=== PATIENT | male | born 1960 | race Caucasian/White ===

== ENCOUNTER 2019-10-14 07:32 | Outpatient (CLI) | payer OTHER ==
[~2019-10-14 07:32] MED LIST: APIX5TAB PO; ASPI325T92 PO; ATEN25TA PO; FLEC150T PO
== END 2019-10-14 23:59 | disposition home or self-care (01) ==
LOC: CFH 07:32
PROVIDERS: ATTEND Nurse Practitioner Family
DX: I48.91 Unspecified atrial fibrillation (principal)
CPT/HCPCS: 93306

== ENCOUNTER → 2020-11-16 | Outpatient (CLI) | payer OTHER | END | disposition home or self-care (01) | LOC: CLISVCS 11:20 | PROVIDERS: ATTEND Anesthesiology | DX: Z20.828 Contact with and (suspected) exposure to other viral communicable diseases (principal) | CPT/HCPCS: 87635 ==

== ENCOUNTER 2020-11-20 05:52 | Observation (INO) | payer OTHER ==
[~2020-11-20] VITALS: Ht 175.3 cm; Wt 84.1 kg
[2020-11-20 06:21] VITALS: BP 128/76
[2020-11-20] MEDS ORDERED: SODIUM CHLORIDE 0.9% 1,000 ML IV SCH ×2 (06:30)
[2020-11-20] MEDS ORDERED: VITA100C10 PO (06:35)
[2020-11-20] MEDS ORDERED: CHOL10003 PO (06:35)
[2020-11-20] MEDS ORDERED: FLEC150T PO (06:35)
[2020-11-20] MEDS ORDERED: IBUP200C8 PO (06:48)
[2020-11-20] MEDS ORDERED: Flovent INH (06:49)
[2020-11-20] MEDS ORDERED: FEXO180T15 PO (06:49)
[2020-11-20 07:09] LABS: ANION GAP 4 mmol/L (5-15); CALCIUM 9.1 mg/dL (8.5-10.1); CHLORIDE 111 mmol/L (98-107); CREATININE 1.06 mg/dL (0.7-1.3)
[2020-11-20 07:29] LABS: BASOPHILS % (AUTO) 1 % (0-1); EOSINOPHILS % (AUTO) 2 % (1-7); LYMPHOCYTES % (AUTO) 24 % (22-44); MEAN CORPUSCULAR HEMOGLOBIN 32.1 pg (27.5-34.5); MEAN CORPUSCULAR HGB CONC 34.6 g/dL (33.2-36.2); MEAN PLATELET VOLUME 8.4 fL (7.4-10.4); MONOCYTES % (AUTO) 10 % (2-9); NEUTROPHILS % (AUTO) 64 % (42-75); PLATELET COUNT 161 x10^3/uL (130-400); RED BLOOD COUNT 4.83 x10^6/uL (4.38-5.82); RED CELL DISTRIBUTION WIDTH 12.8 % (9.4-14.8)
[2020-11-20 07:36] LABS: MD NO
[2020-11-20] MEDS ORDERED: LIDOCAINE 1%, 20ML ONE (07:36)
[2020-11-20] MEDS ORDERED: MIDAZOLAM 1 MG/ML, 2ML ONE (07:40)
[2020-11-20] MEDS ORDERED: ONDANSETRON 2MG/ML, 2ML ONE (07:42)
[2020-11-20] MEDS ORDERED: DEXAMETHASONE 4 MG/ML, 1ML ONE (07:42)
[2020-11-20] MEDS ORDERED: PROPOFOL 10 MG/ML, 20ML ONE (07:42)
[2020-11-20] MEDS ORDERED: ROCURONIUM 10 MG/ML,10ML ONE (07:42)
[2020-11-20] MEDS ORDERED: PHENYLEPHRINE 10 MG/ML ONE (07:42)
[2020-11-20] MEDS ORDERED: FENTANYL PF 250 MCG/5ML ONE (07:44)
[2020-11-20] MEDS ORDERED: ISOPROTERENOL 0.2MG/ML, 5ML ONE (09:53)
[2020-11-20] MEDS ORDERED: APIXABAN 5 MG TABLET ONE (11:25)
[2020-11-20] MEDS ORDERED: DIAZEPAM 5 MG/ML, 2ML IVPush PRN (11:30)
[2020-11-20] MEDS ORDERED: ACETAMINOPHEN 325 MG TABLET PO PRN (11:30)
[2020-11-20] MEDS ORDERED: MIDAZOLAM 1 MG/ML, 2ML IV PRN (11:30)
[2020-11-20] MEDS: APIXABAN 5 MG TABLET PO SCH ×2 (11:30→21:08)
[2020-11-20] MEDS ORDERED: OXYcodone 5 MG/5 ML ORAL.SOL UDC PO PRN (11:30)
[2020-11-20] MEDS ORDERED: DIPHENHYDRAMINE 50 MG/ML, 1ML IVPush PRN (11:30)
[2020-11-20] MEDS ORDERED: LABETALOL 5MG/ML, 20ML IV PRN (11:30)
[2020-11-20] MEDS ORDERED: ONDANSETRON 2MG/ML, 2ML IVPush PRN (11:30)
[2020-11-20] MEDS ORDERED: PROMETHAZINE 12.5 MG SUPP PR PRN (11:30)
[2020-11-20] MEDS ORDERED: PROMETHAZINE 25 MG/ML, 1ML IVPush PRN (11:30)
[2020-11-20] MEDS ORDERED: hydrALAzine 20 MG/ML, 1ML IV PRN (11:30)
[2020-11-20] MEDS ORDERED: MEPERIDINE/PF 25MG/0.5ML IVPush PRN (11:30)
[2020-11-20] MEDS ORDERED: HYDROmorphone 1 MG/ML, 1ML INJ IVPush PRN (11:30)
[2020-11-20] MEDS ORDERED: ALBUTEROL SULFATE 2.5 MG/3 ML NPPB PRN (11:30)
[2020-11-20] MEDS ORDERED: EPHEDRINE 50 MG/ML, 1ML IVPush PRN (11:30)
[2020-11-20] MEDS ORDERED: FENTANYL PF 100 MCG/2ML ONE (11:41)
[2020-11-20] MEDS: FENTANYL PF 100 MCG/2ML IV PRN ×3 (11:42→12:27)
[2020-11-20] MEDS ORDERED: OXYcodone 5 MG/5 ML ORAL.SOL UDC ONE (11:42)
[2020-11-20 13:07] VITALS: BP 142/82
[2020-11-20 17:49] VITALS: BP 113/73
[2020-11-20] MEDS: FLECAINIDE 100MG TABLET PO SCH (17:53)
[2020-11-20 19:09] VITALS: BP 117/82
[2020-11-20] MEDS: ATENOLOL 25 MG TABLET PO SCH (21:08)
[2020-11-20] MEDS: COLCHICINE 0.6 MG CAPSULE PO SCH (21:08)
[2020-11-20] MEDS: IBUPROFEN 600 MG TABLET PO PRN (21:09)
[2020-11-21 01:42] VITALS: BP 143/84
[2020-11-21] MEDS: IBUPROFEN 600 MG TABLET PO PRN (03:57)
[2020-11-21] MEDS: FLECAINIDE 100MG TABLET PO SCH (05:50)
[2020-11-21 08:44] VITALS: BP 114/73
[2020-11-21] MEDS ORDERED: CHOLECALCIFEROL 1,000 UNIT TABLET PO SCH (09:00)
[2020-11-21] MEDS ORDERED: LORATADINE 10 MG TABLET PO SCH (09:00)
[2020-11-21] MEDS ORDERED: TEMPLATE NON-FORMULARY MED. (Fexofenadine Hcl** 180 MG) PO SCH (09:00)
[2020-11-21] MEDS: APIXABAN 5 MG TABLET PO SCH (09:17)
[2020-11-21] MEDS: ATENOLOL 25 MG TABLET PO SCH (09:17)
[2020-11-21] MEDS: COLCHICINE 0.6 MG CAPSULE PO SCH (09:17)
[2020-11-21] MEDS ORDERED: COLC0.6C3 PO ×3 (09:21→10:13)
[2020-11-21] MEDS ORDERED: FLEC100T PO (09:21)
[2020-11-21] MEDS ORDERED: APIX5TAB PO (09:21)
== END 2020-11-21 11:26 | disposition home or self-care (01) ==
LOC: CACL 05:52 → CCU 11:10 → 5SO 13:51 → CACL 19:44 → 5SO 19:50 → DCLOUNGE 11-21 11:17
PROVIDERS: ADMIT Internal Medicine Cardiovascular Disease; ATTEND Internal Medicine Cardiovascular Disease
DX: I48.91 Unspecified atrial fibrillation (principal); I10 Essential (primary) hypertension; F10.10 Alcohol abuse, uncomplicated; Z79.899 Other long term (current) drug therapy
CPT/HCPCS: 36415; 71046; 80048; 85025; 85347; 93306; 93312; 93321; 93325; 93356; 93613; 93656; 93657; 93662; C1730; C1732; C1759; C1766; C1893; C1894; G0378; J1100; J2250; J2370; J2405; J2704; J3010; J3490